=== PATIENT | female | born 1955 | race Caucasian/White ===

== ENCOUNTER 2024-08-23 20:15 | Emergency (ER) | payer BC, MEDICARE ==
[2024-08-23] MEDS: Ketorolac 30 MG/ML SDV IM STA (20:49)
[2024-08-23] MEDS: Cyclobenzaprine 10 MG Tab PO ONE (20:51)
== END 2024-08-23 21:18 | disposition home or self-care (01) ==
LOC: FB.ED 20:15
DX: M54.2 Cervicalgia (principal); M54.6 Pain in thoracic spine; M25.519 Pain in unspecified shoulder; Z88.1 Allergy status to other antibiotic agents
CPT/HCPCS: 96372; 99283; A9270; J1885